=== PATIENT | male | born 1965 | race Caucasian/White ===

== ENCOUNTER 2020-06-10 10:01 | Emergency (ER) | payer MEDICAID, SELFPAY ==
[~2020-06-10] VITALS: Ht 175.3 cm; Wt 74.8 kg
[2020-06-10 10:04] VITALS: Ht 175.3 cm; Wt 74.8 kg
[2020-06-10 11:41] VITALS: BP 151/87
== END 2020-06-10 11:41 | disposition home or self-care (01) ==
LOC: ED 10:01
DX: J02.9 Acute pharyngitis, unspecified (principal); Z20.828 Contact with and (suspected) exposure to other viral communicable diseases; Z98.890 Other specified postprocedural states
CPT/HCPCS: U0003-CS